=== PATIENT | female | born 1990 | race Caucasian/White ===

== ENCOUNTER 2022-04-14 11:35 | Outpatient (RCR) | payer OTHER, SELFPAY | END 2022-07-13 23:59 | disposition home or self-care (01) | LOC: ANHLAB 11:35 | PROVIDERS: Visit Provider Obstetrics & Gynecology | DX: Z36.89 Encounter for other specified antenatal screening (principal); O36.0130 Maternal care for anti-D [Rh] antibodies, third trimester, not applicable or unspecified; Z3A.00 Weeks of gestation of pregnancy not specified | CPT/HCPCS: 36415; 85461 ==

== ENCOUNTER 2022-10-01 15:17 | Outpatient (RCR) | payer OTHER, SELFPAY ==
[2022-09-23 15:50] VITALS: BP 123/69; PULSE 108
[2022-09-24 10:38] VITALS: BP 127/58; PULSE 92
[2022-10-01 16:12] VITALS: BP 116/85; PULSE 85
== END 2022-10-29 13:32 | disposition home or self-care (01) ==
LOC: ANHOBOP 15:17
PROVIDERS: Visit Provider Obstetrics & Gynecology
DX: O24.419 Gestational diabetes mellitus in pregnancy, unspecified control (principal); O98.513 Other viral diseases complicating pregnancy, third trimester; U07.1 COVID-19; Z3A.33 33 weeks gestation of pregnancy; O36.8130 Decreased fetal movements, third trimester, not applicable or unspecified; Z3A.34 34 weeks gestation of pregnancy
CPT/HCPCS: 59025

== ENCOUNTER 2022-10-16 10:58 | Outpatient (CLI) | payer OTHER, SELFPAY ==
[2022-10-16 12:08] LABS: Hemoglobin 11.6 g/dL (12.0-15.0); Mean Corpuscular HGB Conc 32.2 g/dl (32-36); Mean Corpuscular Hemoglobin 26.4 pg (26-34); Mean Corpuscular Volume 81.8 fl (80-100); Mean Platelet Volume 10.2 fl (7.4-10.4); Platelet Count Result 241 k/mm3 (150-375); Red Cell Distribution Width 15.7 % (11.5-14.5); White Blood Count 9.8 K/mm3 (4.5-10.0)
[2022-10-18 09:17] LABS: Rapid Plasma Reagin Non-Reactive (NonReactive)
== END 2022-10-16 10:59 | disposition home or self-care (01) ==
LOC: ANHLAB 11:01
PROVIDERS: Visit Provider Obstetrics & Gynecology
DX: Z01.818 Encounter for other preprocedural examination (principal)
CPT/HCPCS: 36415; 85027; 86592; 86850; 86900; 86901

== ENCOUNTER 2022-10-18 05:29 | Inpatient (IN) | payer OTHER, SELFPAY ==
[2022-10-18] VITALS (70 sets, daily range): BP systolic 72–141; BP diastolic 38–124; PULSE 57–295; RESP 14–20; TEMP 36–36.9; O2SAT 90–100; BMI 39.7
[2022-10-18 05:47] LABS: Glucose Point of Care 107 mg/dl (65-105)
[2022-10-18] MEDS: LACTATED RINGERS 1,000 ML 125 ML IV CONT ×2 (06:27→07:20)
--- NOTE | 2022-10-18 06:45 | LDADM ---
This patient, Janene Hackett, was admitted to Labor/Delivery/Recovery 120 on 10/18/22 at 05:29. Plans for labor, pain management and were discussed with patient. Patient/family oriented to hospital policies and general routines including ID bracelet, bed and alarms, visiting hours, pain management, procedures, bathroom and other care routines, personal items, smoking policy, room service/diet and guest tray routines, infant security routines, and visiting hours. Patient/Family are encouraged to report perceived risks to care and to ask questions if they do not understand what they are told or what they should do.
[2022-10-18 07:02] LABS: HIV 1/2 Ab P24 Ag Result Negative (Negative)
--- NOTE | 2022-10-18 07:21 | PM.IMHP ---
H&P: HPI History of Present Illness Date/Time: 10/18/22 07:21 Chief Complaint: primary cs Narrative: Janene is a at 37.2 for primary CS for history of shoulder dystocia. The dystocia was severe and resulted in broken humerus and a long NICU stay. She has cholestasis this . her itching has improved on ursodiol. she also had some oligohydramnios with ORESTES of 5, now improved on Tuesday to 6+. She wants tubes removed with CS. otherwise complicated. Review of Systems Review of Systems: All systems reviewed & are unremarkable except as noted in HPI and below PMFSH Family History Family History Mother Bone disease Father Heart disease Grandparent Breast cancer Grandparent Heart disease Social History Social History Substance use: never Spiritual care concerns: No Meds Home Medications and Allergies Home Medications Medication Instructions Recorded Confirmed Type aspirin 81 mg capsule 81 mg PO DAILY 09/23/22 10/18/22 History docusate sodium 100 mg capsule 100 mg PO DAILY 09/23/22 10/18/22 History (Colace) insulin NPH isoph U-100 human 100 10 unit subcut QACBREAK 09/23/22 10/18/22 History unit/mL subcutaneous suspension (Humulin N NPH U-100 Insulin (isophane susp)) insulin NPH isoph U-100 human 100 30 unit subcut HS 09/23/22 10/18/22 History unit/mL subcutaneous suspension (Humulin N NPH U-100 Insulin (isophane susp)) vit no.95-ferrous 1 tablet PO DAILY 09/23/22 10/18/22 History fumarate 28 mg-folic acid 800 mcg tablet () ursodiol 300 mg capsule 300 mg PO BID 10/11/22 10/18/22 History Allergies Allergy/AdvReac Type Severity Reaction Status Date / Time diphenhydramine AdvReac Hallucinati Verified 10/11/22 14:31 [From Benadryl] ng Vital Signs Vital Signs - 24 hr 10/18/22 06:02 10/18/22 06:16 10/18/22 06:31 Temperature Pulse Rate 101 H 98 100 Respiratory Rate Blood Pressure 122/55 L 117/66 107/63 Oxygen Delivery 10/18/22 06:32 10/18/22 06:32 10/18/22 06:31 Temperature 97.9 F Pulse Rate 100 100 Respiratory Rate 20 Blood Pressure 107/63 Oxygen Delivery Room Air Exam Const: General: no acute distress Resp: Effort & Inspection: normal respiratory effort Auscultation: clear to auscultation bilaterally Cardio: Rate: regular rate Rhythm: regular rhythm GI: GI Palp: Yes Soft to palpation Extrem: General: normal to inspection Assessment and Plan Assessment and plan (1) Cholestasis during : Code(s): O26.619 - Liver and biliary tract disorders in , unspecified trimester; K83.1 - Obstruction of bile duct Status: Acute (2) History of shoulder dystocia: Status: Acute Plan CS for h/o shoulder dystocia delivery at 37w for cholestasis, has had testing discussed RBA of CS, questions answered, consented, will proceed.
--- NOTE | 2022-10-18 07:26 | WPDHPUPDATE1 ---
History and Physical Update Update Date/Time: 10/18/22 07:26 History and Physical has been reviewed, including an updated exam of the patient. There are NO changes in the patient's condition. Risks, benefits, and alternatives have been discussed and questions answered. Patient agrees to proceed with procedure.
[2022-10-18] MEDS: ceFAZolin 2 GM/D5W 50 ML 2 GM/50 ML BAG IVPB (07:36)
[2022-10-18] MEDS: KETOROLAC 30 MG/ML VIAL (*BKC) IV PUSH ×2 (08:15→22:35)
--- NOTE | 2022-10-18 09:04 | PM.OBPRVD ---
OB - Delivery Note Procedure Delivery date: 10/18/22 Procedure: Procedures Operation Date: 10/18/22 07:30 Actual Procedure Side Surgeon p Primary Section with Tubal Ligation Bilateral Isamar Contreras MD Events: Gestational Diabetes and Other (cholestasis, history of shoulder dystocia) Route of delivery: Specimen: Yes (placenta) Quantitative Blood Loss (ml): 695 Anesthesia type: Spinal Disposition: Floor Complications: none Narrative: The patient was taken to the OR and received spinal anesthesia. She was placed in dorsal supine position with left lateral tilt. SCDs and reagan were placed. She was prepped and draped in the normal sterile fashion. A Pfannensteil skin incision was made and carried through to the underlying layer of fascia. The fascia was incised in the midline and then extended laterally using Estrada scissors. The muscles were in the midline and the peritoneum was entered bluntly. The peritoneal incision was extended inferiorly and superiorly with care to avoid the bladder. The bladder blade was then inserted, the vesicouterine peritoneum was grasped, incised with Metzenbaum scissors, and a bladder flap created. The bladder blade was reinserted. A low transverse uterine incision was made with a scalpel and extended bluntly. AROM was performed and fluid was noted to be clear. The head was delivered, followed by the remainder of the baby. The baby's oropharynx was suctioned. After 30 seconds, the cord was clamped and cut and the infant was handed off. Cord blood was obtained and the placenta was then removed manually. The uterus was exteriorized. A moist lap sponge was used to curette the endometrium. The uterine incision was then closed with two layrsr of 0-Vicryl in a running, locking fashion. Good hemostasis was noted. I then turned attention to the tubes. Using the Ligasure, the right tube was removed by sequentially clamping, cauterizing, and cutting the tube free from the cornua and the broad ligament. Similarly, the left tube was removed. The posterior cul de sac was irrigated with normal saline and cleared of all clot and debris. The uterus was returned to the abdomen. Both lateral gutters were then irrigated. The rectus muscles were inspected and found to be hemostatic. The fascia was reapproximated using 0-Vicryl in running fashion. The subcutaneous tissue was irrigated with normal saline and made hemostatic with Bovie electrocautery. A layer of 2-0 plain gut was placed in the subcutaneous fat. The skin was then closed with reabsorbable gerardo. Steri strips and a bandage were applied. The uterus was evacuated. The patient tolerated the procedure very well. All counts were correct. She was taken to the recovery room in good condition. [place] Baby Date of : 10/18/22 Time of : 08:12 Weeks of gestation at delivery: 37 Infant gender: Female Weight (pounds): 6 Weight (ounces): 11 presentation: vertex Placenta delivery description: Manual Removal Cord Vessel Description: 3 Vessels and Delayed Cord Clamping score one minute: 7 score five minutes: 9
--- NOTE | 2022-10-18 09:11 | SUR.PHASEI ---
300 mls remains in bag of IV fluids- 100ml LR with 40 unit Pitocin.
--- NOTE | 2022-10-18 10:23 | SUR.PHASEI ---
Spoke with Son Chavira CRNA regarding pt's waves of nausea that come on suddenly and has dry heaves and bile emesis. Discussed pt's adverse reaction to benadryl was hallucinations as a child. Pt willing to try Benadryl for nausea. Order received.
[2022-10-18] MEDS: OXYTOCIN 30 UNITS/NS 500 ML 30 UNITS/500 ML BAG 125 UNITS IV CONT (10:29)
[2022-10-18] MEDS: diphenhydrAMINE HCl INJ 50 MG/ML VIAL 12.5 MG IV PUSH (10:33)
--- NOTE | 2022-10-18 11:33 | OBPPTRN ---
Patient transferred to post room #290 via stretcher. Support person present. Oriented to unit, room, information board, rooming in, admission packet and security measures. Patient verbalizes understanding.
[2022-10-18 11:42] LABS: Glucose Point of Care 118 mg/dl (65-105)
--- NOTE | 2022-10-18 14:13 | PC.NURSE ---
[id number] Introductions were made, then consulted with patient to assess needs related to . Mother led the conversation with her?plans to feed?her infant and the?experience so far after her section. Resources provided for inpatient mom/baby guide. Mother voiced understanding of information and requests assistance since her EGA 37 week was born. Mother works well with her with encouragement and education. Encouraged understanding of the benefits of skin to skin (unwrapping infant and placing vertically on her chest), responsive feeding and how to watch for early feeding signs, frequency of feeding on demand about every 8-12 times in 24 hours (every 2-3 hours), milk production, duration of feeding, signs of adequate intake/output and how to record on the feeding sheet. There is a wide space between mother's breast and they downward tube like. Mother states with her first she did not produce a lot of milk but believes that is because she wasn't committed to pumping regularly with her infant in the NICU. Reviewed positioning and ear, shoulder, hip alignment, supporting the breast, asymmetrical latch (off-center), and leading with the chin with a big, open, wide gape. Infant opens wide on occasion, infant is brought to the breast, then shuts her mouth on the breast pushing the nipple out of her mouth. is unable to latch or suck the breast into her mouth. Mother was encouraged to keep practicing as is reluctant right now sleepy after with a blood sugar of 64mg/dl as reported by Primary RN. [id number] Breast pump provided due to ineffective and a history of low milk supply. Instructions given on cleaning, care, usage, that there should be no pain, pumping schedule for milk production, collection, and storage of human milk. Parents are encouraged to record pumping schedule on the feeding sheet. Patient was assessed for correct placement, flange size, to pump for comfort and nipple stretching/stimulation for adequate milk production every 3 hours (8 times in 24 hours) 1-2 times at night. Resources used to facilitate learning were used with the mom and baby guide. Mother voiced understanding of responsive feedings, stimulating with skin to skin, massage touch, talking to infant to encourage if it has been 2 -3 hours since the start of the last , to call if infant does not latch, there is discomfort with or collecting milk from pumping. Discussed the possibility of supplementing her infant and mother states she is prepared if needed and has a pump at home. Primary RN is present and aware of POC.
[2022-10-18] MEDS: KCL 20 MEQ/D5/0.45% SOD CHL 1,000 ML 125 ML IV CONT (14:38)
[2022-10-19 00:15] VITALS: BP 108/63; PULSE 90; RESP 18; TEMP 36.9; O2SAT 99
[2022-10-19 03:30] VITALS: BP 105/61; PULSE 96; RESP 16; TEMP 36.8; O2SAT 98
[2022-10-19] MEDS: IBUPROFEN 600 MG TABLET PO ×3 (04:47→17:33)
[2022-10-19 05:20] LABS: Basophils Percent Auto 0.4 % (0.2-1.2); Eosinophils Absolute Auto 0.1 K/mm3 (0-0.3); Eosinophils Percent Auto 0.6 % (0-4.4); Hemoglobin 9.6 g/dL (12.0-15.0); Immature Granulocyte Absolute 0.05 K/mm3 (0.00-0.031); Immature Granulocyte Percent A 0.5 % (0-0.5); Lymphocytes Absolute Auto 1.91 K/mm3 (0.9-3.2); Lymphocytes Percent Auto 19.5 % (18.3-44.2); Mean Corpuscular Hemoglobin 26.5 pg (26-34); Mean Corpuscular Volume 82.9 fl (80-100); Mean Platelet Volume 9.9 fl (7.4-10.4); Monocytes Absolute Auto 0.4 K/mm3 (0.1-0.6); Monocytes Percent Auto 3.8 % (2.6-8.5); Neutrophils Absolute Auto 7.3 K/mm3 (1.3-6.7); Neutrophils Percent Auto 75.2 % (45.5-73.1); Platelet Count Result 222 k/mm3 (150-375); Red Blood Count 3.62 M/mm3 (4.2-5.4); Red Cell Distribution Width 15.9 % (11.5-14.5); White Blood Count 9.8 K/mm3 (4.5-10.0)
[2022-10-19 07:25] VITALS: BP 108/63; PULSE 90; RESP 16; TEMP 37.2; O2SAT 99
[2022-10-19] MEDS: MULTIVIT/MIN/PREN/FOL AC/IRON TABLET 1 TAB PO (08:05)
[2022-10-19] MEDS: DOCUSATE SODIUM 100 MG CAPSULE PO ×2 (08:05→17:34)
[2022-10-19] MEDS: POLYSACCHARIDE IRON COMPLEX 150 MG CAPSULE PO ×2 (08:05→17:34)
--- NOTE | 2022-10-19 08:48 | PM.OBPNVD ---
OB - PN: Subj Subjective Date/time seen: 10/19/22 08:48 Patient comments: no complaints and pain well controlled baby status: doing well, nursing well and NICU feeding status: exclusively breast feeding Narrative: POD 1 from primary CS. Doing well. Normal lochia. Eating, ambulating, reagan out. OB - PN: Obj Data Labs 10/19/22 03:30 Labs: Laboratory Results - last 24 hr 10/18/22 10/19/22 11:15 03:30 WBC 9.8 RBC 3.62 L Hgb 9.6 L Hct 30.0 L MCV 82.9 MCH 26.5 MCHC 32.0 RDW 15.9 H Plt Count 222 MPV 9.9 Immature Gran % (Auto) 0.5 Neut % (Auto) 75.2 H Lymph % (Auto) 19.5 [place] % (Auto) 3.8 Eos % (Auto) 0.6 Baso % (Auto) 0.4 Lymph # (Auto) 1.91 [place] # (Auto) 0.4 Eos # (Auto) 0.1 Baso # (Auto) 0.0 Abs Immat Gran (auto) 0.05 H Absolute Neuts (auto) 7.3 H Absolute Nucleated RBC 0.0 Nucleated RBC % 0.0 POC Capillary Glucose 118 H OB - PN A/P Assessment and Plan (1) delivery delivered: Code(s): O82 - Encounter for delivery without indication Status: Acute Plan day: 1 Plan: routine care Time Spent With Patient Time: Total time spent is greater than 50% in coordination of care (as documented) at patient's floor/unit and/or counseling patient: Exam Narrative: NAD abdomen soft, appropriately tender, incision bandaged Extremities nontender with 1+ edema
--- NOTE | 2022-10-19 10:18 | WPDANLDNPN2 ---
Anes-Prog Note L&D-Neuraxial Date/Time: 10/19/22 10:18 Neuraxial medications: intrathecal PF morphine Opiod-related complaints: none Patient feedback: Patient satisfied with post-operative pain management.
--- NOTE | 2022-10-19 10:18 | WPDANLDPN2 ---
Anes-Prog Note L&D Date/Time: 10/19/22 10:18 Comfortable throughout: section Neuraxial method: spinal Epidural/Spinal procedure site: clean & non-tender Neuro status: Neuro function grossly intact. Cardiovascular status: normal Respiratory status: normal Airway patency: baseline Mental status: baseline Post-Op hydration status: normal Vital Signs: Last Vital Signs Temp 99 F 10/19/22 07:25 Pulse 90 10/19/22 07:25 Resp 16 10/19/22 07:25 BP 108/63 10/19/22 07:25 Pulse Ox 99 10/19/22 07:25 O2 Del Method Room Air 10/19/22 08:05 Pain score (VAS): 0/10 I/O: Intake & Output 10/18/22 10/19/22 10/19/22 23:59 07:59 15:59 Intake Total 600 700 Output Total 1029 7459 300 Balance -425 -1125 -300 Post-procedural complaints: none Patient feedback: Patient satisfied with anesthetic care.
[2022-10-19] MEDS: TETANUS,DIPHTHERIA,AC PERTUSSIS ADULT (0.5 ML) BOOSTRIX IM (11:14)
--- NOTE | 2022-10-19 14:57 | PC.NURSE ---
[id number] Consulted with patient to assess needs related to . Mother led conversation with her experience with feeding baby so far. Mother works well with her and is demonstrating effectively breastfeed on the left breast using cross cradle positioning with no pain. Mother reminded of how to visualize her swallowing and listen for the drinking sounds that her is demonstrating. Mother voiced understanding of the education shared, calling for assistance if the does not latch or if there is discomfort with . Reported to the primary RN.
[2022-10-19] MEDS: HYDROcodone/acetaminophen (*CRX) 5-325 MG TABLET 1 TAB PO ×2 (17:35→22:04)
[2022-10-19 19:35] VITALS: BP 122/71; PULSE 101; RESP 18; TEMP 37.1; O2SAT 99
[2022-10-20] MEDS: HYDROcodone/acetaminophen (*CRX) 5-325 MG TABLET 1 TAB PO ×3 (01:39→13:10)
[2022-10-20] MEDS: IBUPROFEN 600 MG TABLET PO ×2 (01:40→10:00)
[2022-10-20 08:15] VITALS: BP 114/62; PULSE 99; RESP 18; TEMP 37.3; O2SAT 99
--- NOTE | 2022-10-20 08:37 | P.PNOB_ITS ---
OB - PN: Subj Subjective Date/time seen: 10/20/22 08:37 Patient comments: no complaints and pain well controlled baby status: doing well and nursing well [place] feeding status: exclusively breast feeding OB - PN: Obj Data Labs 10/19/22 03:30 OB - PN A/P Plan day: 2 Plan: routine care and discharge home Time Spent With Patient Time: Total time spent is greater than 50% in coordination of care (as documented) at patient's floor/unit and/or counseling patient: Exam Narrative: NAD abdomen soft, appropriately tender, incision CDI Extremities nontender with 1+ edema
--- NOTE | 2022-10-20 08:40 | PM.DS ---
DS: Admitting Diagnosis Discharge Date 10/20/22 Admitting Diagnosis IUP 37w, cholestasis DS: Discharge Diagnosis Discharge Diagnosis (1) delivery delivered: Code(s): O82 - Encounter for delivery without indication Status: Acute DS: Summary Hospital Course Hospital Course: Denise was admitted for primary CS for history of severe shoulder dystocia and current preeclampsia at 37w. She proceeded to have an uncomplicated delivery and course. She was discharged home in stable condition on POD 2. Status at Discharge Functional status at discharge: independent ambulation Time Spent with Patient Time attestation: Total time spent providing and/or coordinating discharge services: Exam Narrative: NAD abdomen soft, appropriately tender, incision CDI DS: Data Data Completed and Pending Completed studies during hospitalization: Pending at discharge 10/18/22 08:35 Surgical [PTH] Routine Discharge Plan Discharge Attending physician on discharge: Isamar Contreras Discharging Clinician: Isamar Contreras Anticipated Discharge Date/Time: 10/20/22 08:38 Patient Disposition: Home, Self-Care Activity: may shower, may drive after 2 weeks and pelvic rest Diet: regular Discharge Instructions: Education: Mom and Baby Guide Given to: Mother Follow-Up: Call your delivering provider's office for an appointment to be seen in: 1 Week [facility]. Appointment Date/Time: October 22, 2022 at 11:00 am What to expect at your follow-up visit: Blood Pressure Check Call [phone] if you are unable to keep your appointment time. BREAST CARE: * Wear a snug supportive bra. * For engorgement discomfort: Breast Feeding: * Apply warm moist washcloths * Express milk as needed to relieve engorgement * Wear loose clothing Bottle Feeding: * May apply ice packs * For sore nipples: * Identify correct latch-on * Apply warm moist washcloths before and after nursing * Air dry nipples after nursing * May apply Lansinoh cream to nipples ABDOMINAL INCISION: (if applicable) * Allow incision to air dry * Do NOT use lotions for powders on your incision * When showering, allow soap and water to run over the incision, but do not wash incision PERINEAL CARE: * Until bleeding stops, use your margarette bottle after urinating * Change your pad frequently throughout the day * No tub baths until seen by your physician - You may shower ACTIVITY: * Rest as much as possible. * Do not exercise or lift anything heavier than your baby (such as laundry or other children.) * Avoid stairs or driving as much as possible. * Do not put anything into the vagina. No douching, tampons, or sexual activity until seen by physician. NOTIFY PHYSICIAN IF YOU HAVE ANY QUESTIONS OR IF ANY OF THE FOLLOWING SYMPTOMS OCCUR: * If your incision becomes red, swollen, or more painful than what you have experienced in the hospital. * If your vaginal bleeding becomes foul smelling. * If your vaginal bleeding becomes more heavy than a period or if your bleeding changes from pink to bright red. However, you may pass an occasional walnut-sized clot once or twice for the first week . * If you experience a sharp, shooting pain in you calves. * If you discover a hard, reddened area on your breast or if you experience flu-like symptoms. * If you have a fever of 100.4or greater DIET: * Eat regular, well-balanced meals. * Drink plenty of fluids daily. If , drink to thirst. Patient Instructions: Antibiotic Form Stand Alone Forms: General Discharge Information Follow-up/Referrals: Isamar Contreras MD [Physician] - 1 Week Discharge Medications: New hydrocodone-acetaminophen 5-325 mg Tablet 1 tablet PO Q4-5H PRN ([place]
[2022-10-20] MEDS: MULTIVIT/MIN/PREN/FOL AC/IRON TABLET 1 TAB PO (09:59)
[2022-10-20] MEDS: POLYSACCHARIDE IRON COMPLEX 150 MG CAPSULE PO (09:59)
[2022-10-20 10:00] VITALS: PULSE 99; RESP 18; O2SAT 99
[2022-10-20] MEDS: DOCUSATE SODIUM 100 MG CAPSULE PO (10:00)
--- NOTE | 2022-10-20 13:24 | PC.NURSE ---
Janie - Milad JEFFERY reported assessing an effective latch today.
--- NOTE | 2022-10-20 13:35 | PC.NURSE ---
PT discharged to home ambulatory accompanied by infant and spouse and taken to waiting car. Follow up appts confirmed
== END 2022-10-20 13:35 | disposition home or self-care (01) | DRG 540 ==
LOC: ANHLDR 05:49 → ANHOB2 11:50
PROVIDERS: Admitting Provider Obstetrics & Gynecology; Visit Provider Obstetrics & Gynecology
PROC: 10D00Z1 Extraction of Products of Conception, Low, Open Approach (ICD-10-PCS; CPT 59514; principal; 2022-10-18 07:30)
DX: O99.892 Other specified diseases and conditions complicating childbirth (principal); K83.1 Obstruction of bile duct; Z37.0 Single live birth; Z3A.37 37 weeks gestation of pregnancy; Z23 Encounter for immunization; Z87.59 Personal history of other complications of pregnancy, childbirth and the puerperium; O26.62 Liver and biliary tract disorders in childbirth; O24.429 Gestational diabetes mellitus in childbirth, unspecified control
CPT/HCPCS: 36415; 82948; 85025; 85027; 86592; 86703; 86850; 86900; 86901; 88302; 90471; 90686; 90715; A9270; G0008; G0432; J0131; J0690; J1200; J1885; J2274; J2370; J2405; J2590; J3480; J7120